=== PATIENT | male | born 1950 | race Caucasian/White ===

== ENCOUNTER 2024-08-23 08:31 | Inpatient (IN) | payer OTHER ==
[~2024-08-23] VITALS: Ht 188 cm; Wt 106.0 kg
[2024-08-23] VITALS (7 sets, daily range): BP systolic 118–129; BP diastolic 56–64; TEMP 97.9–99.8; O2SAT 91–96
[~2024-08-23 08:31] MED LIST: BACITAB PO; FISH1000 PO; LEVO150T7 PO; VITA100066 PO; VITMTA PO; XARE15TA PO; ZYLO300T6 PO
[2024-08-23] MEDS: MORPHINE 4 MG/ML 1ML VIAL IV ONE (09:06)
[2024-08-23] MEDS: ONDANSETRON 4MG 2ML VIAL IV ONE (09:06)
[2024-08-23 09:07] LABS: VENOUS HCO3 20.6 MMOL/L (23.0-27.0); VENOUS O2 SATURATION 98.8 % (60.0-80.0); VENOUS PARTIAL PRESSURE CO2 40.2 mmHg (38.0-50.0); VENOUS PH 7.328 UNITS (7.330-7.430); VENOUS STANDARD HCO3 20.4 MMOL/L; VENOUS TOTAL CO2 21.9 MMOL/L (24.0-28.0)
[2024-08-23 09:17] LABS: BASO % 0.4 % (0.0-1.0); EOS # 0.2 10^3/uL (0.0-0.5); EOS % 3.2 % (0.0-3.0); HEMATOCRIT 36.2 % (42.0-52.0); HEMOGLOBIN 11.8 g/dl (13.5-17.5); LYMPH # 1.2 10^3/uL (1.5-5.0); LYMPH % 15.9 % (24.0-44.0); MEAN CORPUSCULAR HEMOGLOBIN 28.6 pg (27.0-33.0); MEAN CORPUSCULAR HGB CONC 32.6 g/dl (32.0-36.5); MEAN CORPUSCULAR VOLUME 87.7 fl (80.0-96.0); MONO # 0.5 10^3/uL (0.0-0.8); MONO % 7.4 % (2.0-8.0); NEUTROPHILS # 5.3 10^3/uL (1.5-8.5); NEUTROPHILS % 72.1 % (36.0-66.0); PLATELET COUNT, AUTOMATED 197 10^3/uL (150-450); RED BLOOD COUNT 4.13 10^6/uL (4.30-6.10); WHITE BLOOD COUNT 7.3 10^3/uL (4.0-10.0)
[2024-08-23 09:28] LABS: PARTIAL THROMBOPLASTIN TIME 27.2 SECONDS (24.8-34.2); PROTHROMBIN TIME 13.5 SECONDS (12.5-14.5)
[2024-08-23] MEDS ORDERED: ISOVUE-370 76% 100ML VIAL As Ordered ONE (09:28)
[2024-08-23] MEDS: HYDROMORPHONE HCL 0.5 MG/ 0.5 ML SYRINGE IV PRN (10:35)
[2024-08-23 11:23] LABS: LIPASE 39 U/L (12-53)
[2024-08-23 11:25] LABS: AMYLASE 49 U/L (30-118); CK-MB VALUE MASS 44.4 NG/ML (<3.6)
[2024-08-23 11:26] LABS: ALBUMIN 3.4 G/DL (3.2-5.2); ALKALINE PHOSPHATASE 75 U/L (40-129); ALT/SGPT 22 U/L (7.0-40); AST/SGOT 69 U/L (<34); BILIRUBIN,DIRECT 0.2 MG/DL (<0.4); BILIRUBIN,TOTAL 0.4 MG/DL (0.3-1.2); BLOOD UREA NITROGEN 26 MG/DL (9-23); CALCIUM LEVEL 8.5 MG/DL (8.3-10.6); CARBON DIOXIDE LEVEL 26 MMOL/L (20-31); CHLORIDE LEVEL 108 MMOL/L (98-107); GLOMERULAR FILTRATION RATE > 60.0 (>42); GLUCOSE, FASTING 120 MG/DL (74-106); POTASSIUM SERUM 4.3 MMOL/L (3.5-5.1); SODIUM LEVEL 143 MMOL/L (136-145); TOTAL PROTEIN 6.7 G/DL (5.7-8.2)
[2024-08-23 11:41] LABS: CPK CREATINE PHOSPHOKINASE 1866 U/L (46-171); MB/CK RELATIVE INDEX 2.37 (< OR =4)
[2024-08-23 12:46] LABS: APPEARANCE, URINE CLEAR (CLEAR); BACTERIA, URINE AUTO NEGATIVE (NEGATIVE); BILIRUBIN, URINE AUTO NEGATIVE (NEGATIVE); BLOOD, URINE BLOOD 3+ (NEGATIVE); COLOR, URINE YELLOW (YELLOW); GLUCOSE, URINE (UA) AUTO NEGATIVE (NEGATIVE); KETONE, URINE AUTO NEGATIVE (NEGATIVE); LEUKOCYTE ESTERASE, URINE AUTO NEGATIVE (NEGATIVE); MUCUS, URINE SMALL (NEGATIVE); NITRITE, URINE AUTO NEGATIVE (NEGATIVE); PROTEIN, URINE AUTO NEGATIVE (NEGATIVE); RBC, URINE AUTO 18 /HPF (0-3); SPECIFIC GRAVITY URINE AUTO 1.048 (1.002-1.035); SQUAMOUS EPITHELIAL CELL UR AU 0 /HPF (0-6); UROBILINOGEN, URINE AUTO 0.2 mg/dL (0.0-2.0); WBC, URINE AUTO 1 /HPF (0-3)
[2024-08-23 13:04] LABS: PHENCYCLIDINE URINE NEGATIVE (NEGATIVE)
[2024-08-23 13:05] LABS: AMPHETAMINES LEVEL URINE NEGATIVE (NEGATIVE); BARBITURATES URINE NEGATIVE (NEGATIVE); BENZODIAZEPINES URINE NEGATIVE (NEGATIVE); CANNABINOIDS URINE NEGATIVE (NEGATIVE); COCAINE METABOLITE URINE NEGATIVE (NEGATIVE); METHADONE URINE NEGATIVE (NEGATIVE)
[2024-08-23 13:19] LABS: OPIATES URINE POSITIVE (NEGATIVE)
[2024-08-23] MEDS ORDERED: HYDROMORPHONE HCL 0.5 MG/ 0.5 ML SYRINGE IV PRN (13:45)
[2024-08-23] MEDS ORDERED: IPRATROPIUM 0.5MG/ALBUTEROL 2.5MG INH SOL UD 3ML (DUONEB) NEB PRN (13:45)
[2024-08-23] MEDS ORDERED: ACETAMINOPHEN 325 MG TAB PO PRN (13:45)
[2024-08-23] MEDS ORDERED: ONDANSETRON 4MG 2ML VIAL IV PRN (13:45)
[2024-08-23] MEDS ORDERED: PROMETHAZINE 25MG/ML 1ML VIAL IV PRN (13:45)
[2024-08-23] MEDS ORDERED: ALLO300T2 PO (14:03)
[2024-08-23] MEDS ORDERED: MULT-40 PO (14:03)
[2024-08-23] MEDS ORDERED: VITA200030 PO (14:03)
[2024-08-23] MEDS ORDERED: OMEP40CA4 PO (14:03)
[2024-08-23] MEDS ORDERED: FLUT15.820 (14:03)
[2024-08-23] MEDS ORDERED: XARE10TA PO (14:03)
[2024-08-23] MEDS ORDERED: FLUT1BLS2 IH (14:03)
[2024-08-23] MEDS ORDERED: HOME MED LIST COMPLETE! XX SCH (14:05)
[2024-08-23] MEDS: NS (Normal Saline) 0.9% 1,000 ML IV SCH (14:22)
[2024-08-23] MEDS: PANTOPRAZOLE 40MG VIAL IV SCH (14:22)
[2024-08-23 14:26] LABS: HEMATOCRIT 36.7 % (42.0-52.0); HEMOGLOBIN 11.8 g/dl (13.5-17.5); MEAN CORPUSCULAR HEMOGLOBIN 28.4 pg (27.0-33.0); MEAN CORPUSCULAR HGB CONC 32.2 g/dl (32.0-36.5); MEAN CORPUSCULAR VOLUME 88.4 fl (80.0-96.0); PLATELET COUNT, AUTOMATED 178 10^3/uL (150-450); RED BLOOD COUNT 4.15 10^6/uL (4.30-6.10); WHITE BLOOD COUNT 8.1 10^3/uL (4.0-10.0)
[2024-08-23] MEDS: IPRATROPIUM 0.5MG/ALBUTEROL 2.5MG INH SOL UD 3ML (DUONEB) NEB SCH (16:56)
[2024-08-23 17:52] LABS: CK-MB VALUE MASS 42.6 NG/ML (<3.6)
[2024-08-23 18:29] LABS: MB/CK RELATIVE INDEX 1.31 (< OR =4)
[2024-08-23] MEDS: DOCUSATE SODIUM 100MG CAPSULE PO SCH (20:08)
[2024-08-23 23:57] LABS: CK-MB VALUE MASS 27.2 NG/ML (<3.6)
[2024-08-24] VITALS (11 sets, daily range): BP systolic 105–128; BP diastolic 53–61; TEMP 97.4–99.2; O2SAT 93–99
[2024-08-24 00:17] LABS: MB/CK RELATIVE INDEX 0.83 (< OR =4)
[2024-08-24 04:53] LABS: HEMATOCRIT 31.9 % (42.0-52.0); HEMOGLOBIN 10.3 g/dl (13.5-17.5); MEAN CORPUSCULAR HEMOGLOBIN 28.7 pg (27.0-33.0); MEAN CORPUSCULAR HGB CONC 32.3 g/dl (32.0-36.5); MEAN CORPUSCULAR VOLUME 88.9 fl (80.0-96.0); PLATELET COUNT, AUTOMATED 159 10^3/uL (150-450); RED BLOOD COUNT 3.59 10^6/uL (4.30-6.10); WHITE BLOOD COUNT 5.5 10^3/uL (4.0-10.0)
[2024-08-24] MEDS: LEVOTHYROXINE 150MCG TABLET (0.15MG) PO SCH (05:20)
[2024-08-24] MEDS: KETOROLAC 30 MG/ML 1ML VIAL IV PRN (05:20)
[2024-08-24 05:38] LABS: BLOOD UREA NITROGEN 22 MG/DL (9-23); CALCIUM LEVEL 8.8 MG/DL (8.3-10.6); CARBON DIOXIDE LEVEL 25 MMOL/L (20-31); CHLORIDE LEVEL 108 MMOL/L (98-107); CHOLESTEROL LEVEL 87 MG/DL (<200); CHOLESTEROL RISK RATIO 2.35 (<5); CK-MB VALUE MASS 15.9 NG/ML (<3.6); CREATININE FOR GFR 1.01 MG/DL (0.70-1.30); GLOMERULAR FILTRATION RATE > 60.0 (>42); GLUCOSE, FASTING 133 MG/DL (74-106); LDL CHOLESTEROL 27.4 MG/DL (<100); POTASSIUM SERUM 4.2 MMOL/L (3.5-5.1); SODIUM LEVEL 139 MMOL/L (136-145); TRIGLYCERIDES LEVEL 113 MG/DL (<150)
[2024-08-24 05:40] LABS: THYROID STIMULATING HORMONE 0.477 uIU/ML (0.55-4.78)
[2024-08-24 05:50] LABS: CPK CREATINE PHOSPHOKINASE 2843 U/L (46-171); MB/CK RELATIVE INDEX 0.55 (< OR =4)
[2024-08-24 08:56] LABS: FREE T4 1.01 NG/DL (0.89-1.76)
[2024-08-24] MEDS: allopurinoL 300 MG TAB PO SCH (09:32)
[2024-08-24] MEDS: HYDROMORPHONE HCL 0.5 MG/ 0.5 ML SYRINGE IV PRN (09:38)
[2024-08-24 12:36] LABS: CK-MB VALUE MASS 11.6 NG/ML (<3.6)
[2024-08-24 12:56] LABS: MB/CK RELATIVE INDEX 0.41 (< OR =4)
[2024-08-25] VITALS (12 sets, daily range): BP systolic 119–140; BP diastolic 56–69; TEMP 97.7–98.3; O2SAT 86–96
[2024-08-25 06:35] LABS: HEMATOCRIT 31.4 % (42.0-52.0); HEMOGLOBIN 9.8 g/dl (13.5-17.5); MEAN CORPUSCULAR HEMOGLOBIN 28.2 pg (27.0-33.0); MEAN CORPUSCULAR HGB CONC 31.2 g/dl (32.0-36.5); MEAN CORPUSCULAR VOLUME 90.5 fl (80.0-96.0); PLATELET COUNT, AUTOMATED 143 10^3/uL (150-450); RED BLOOD COUNT 3.47 10^6/uL (4.30-6.10); WHITE BLOOD COUNT 5.4 10^3/uL (4.0-10.0)
[2024-08-25] MEDS: LEVOTHYROXINE 137MCG TABLET (0.137MG) PO SCH (06:36)
[2024-08-25 07:07] LABS: BLOOD UREA NITROGEN 18 MG/DL (9-23); CALCIUM LEVEL 8.1 MG/DL (8.3-10.6); CARBON DIOXIDE LEVEL 24 MMOL/L (20-31); CHLORIDE LEVEL 109 MMOL/L (98-107); CREATININE FOR GFR 0.98 MG/DL (0.70-1.30); GLOMERULAR FILTRATION RATE > 60.0 (>42); GLUCOSE, FASTING 120 MG/DL (74-106); POTASSIUM SERUM 4.3 MMOL/L (3.5-5.1); SODIUM LEVEL 143 MMOL/L (136-145)
[2024-08-25] MEDS: PERCOCET 5MG/325MG TAB PO ONE (08:38)
[2024-08-25] MEDS: RIVAROXABAN 10MG TAB (XARELTO) PO SCH (19:54)
[2024-08-26 03:38] VITALS: BP 124/69; TEMP 98.6; O2SAT 97
[2024-08-26 06:35] LABS: HEMATOCRIT 29.1 % (42.0-52.0); HEMOGLOBIN 9.3 g/dl (13.5-17.5); MEAN CORPUSCULAR HEMOGLOBIN 28.6 pg (27.0-33.0); MEAN CORPUSCULAR VOLUME 89.5 fl (80.0-96.0); PLATELET COUNT, AUTOMATED 146 10^3/uL (150-450); RED BLOOD COUNT 3.25 10^6/uL (4.30-6.10); WHITE BLOOD COUNT 5.2 10^3/uL (4.0-10.0)
[2024-08-26 06:55] LABS: BLOOD UREA NITROGEN 13 MG/DL (9-23); CALCIUM LEVEL 8.3 MG/DL (8.3-10.6); CARBON DIOXIDE LEVEL 24 MMOL/L (20-31); CHLORIDE LEVEL 109 MMOL/L (98-107); CREATININE FOR GFR 0.94 MG/DL (0.70-1.30); GLOMERULAR FILTRATION RATE > 60.0 (>42); GLUCOSE, FASTING 113 MG/DL (74-106); POTASSIUM SERUM 4.2 MMOL/L (3.5-5.1); SODIUM LEVEL 143 MMOL/L (136-145)
[2024-08-26] MEDS ORDERED: NALOXONE INJ 0.4MG/1ML VIAL IV PRN (09:50)
[2024-08-26 10:06] LABS: CK-MB VALUE MASS 1.5 NG/ML (<3.6)
[2024-08-26 10:10] LABS: CPK CREATINE PHOSPHOKINASE 925 U/L (46-171); MB/CK RELATIVE INDEX 0.16 (< OR =4)
[2024-08-26] MEDS: PERCOCET 5MG/325MG TAB PO ONE (11:04)
[2024-08-26] MEDS: ACETAMINOPHEN 500 MG TAB PO SCH (11:13)
[2024-08-26 12:00] VITALS: BP 126/69; TEMP 98.6; O2SAT 94
[2024-08-26 20:39] VITALS: BP 129/69; TEMP 98.1; O2SAT 92
[2024-08-27 04:33] VITALS: BP 136/72; TEMP 98.1; O2SAT 93
[2024-08-27 06:41] LABS: HEMATOCRIT 29.7 % (42.0-52.0); HEMOGLOBIN 9.5 g/dl (13.5-17.5); MEAN CORPUSCULAR HEMOGLOBIN 28.3 pg (27.0-33.0); MEAN CORPUSCULAR VOLUME 88.4 fl (80.0-96.0); PLATELET COUNT, AUTOMATED 179 10^3/uL (150-450); RED BLOOD COUNT 3.36 10^6/uL (4.30-6.10); WHITE BLOOD COUNT 3.8 10^3/uL (4.0-10.0)
[2024-08-27 07:03] LABS: BLOOD UREA NITROGEN 14 MG/DL (9-23); CALCIUM LEVEL 8.6 MG/DL (8.3-10.6); CARBON DIOXIDE LEVEL 26 MMOL/L (20-31); CHLORIDE LEVEL 109 MMOL/L (98-107); CREATININE FOR GFR 0.97 MG/DL (0.70-1.30); GLOMERULAR FILTRATION RATE > 60.0 (>42); GLUCOSE, FASTING 117 MG/DL (74-106); POTASSIUM SERUM 4.2 MMOL/L (3.5-5.1); SODIUM LEVEL 143 MMOL/L (136-145)
[2024-08-27 10:26] VITALS: O2SAT 92
[2024-08-27 12:00] VITALS: BP 134/72; TEMP 97.9; O2SAT 94
[2024-08-27] MEDS: FUROSEMIDE 40MG/4ML VIAL IV ONE (12:16)
[2024-08-27 14:33] VITALS: O2SAT 93
[2024-08-27 20:16] VITALS: BP 131/69; TEMP 97.9; O2SAT 92
[2024-08-28 04:03] VITALS: BP 142/72; TEMP 97.9; O2SAT 94
[2024-08-28 06:11] LABS: HEMATOCRIT 30.7 % (42.0-52.0); HEMOGLOBIN 10.1 g/dl (13.5-17.5); MEAN CORPUSCULAR HEMOGLOBIN 28.8 pg (27.0-33.0); MEAN CORPUSCULAR HGB CONC 32.9 g/dl (32.0-36.5); MEAN CORPUSCULAR VOLUME 87.5 fl (80.0-96.0); PLATELET COUNT, AUTOMATED 201 10^3/uL (150-450); RED BLOOD COUNT 3.51 10^6/uL (4.30-6.10); WHITE BLOOD COUNT 4.1 10^3/uL (4.0-10.0)
[2024-08-28 06:44] LABS: BLOOD UREA NITROGEN 17 MG/DL (9-23); CALCIUM LEVEL 8.9 MG/DL (8.3-10.6); CARBON DIOXIDE LEVEL 30 MMOL/L (20-31); CHLORIDE LEVEL 103 MMOL/L (98-107); CREATININE FOR GFR 1.06 MG/DL (0.70-1.30); GLOMERULAR FILTRATION RATE > 60.0 (>42); GLUCOSE, FASTING 122 MG/DL (74-106); SODIUM LEVEL 140 MMOL/L (136-145)
[2024-08-28] MEDS: FUROSEMIDE 40MG/4ML VIAL IV ONE ×2 (08:32→15:53)
[2024-08-28 12:00] VITALS: BP 124/75; TEMP 97.9; O2SAT 95
[2024-08-28] MEDS: MIDODRINE 5 MG TAB PO ONE (14:42)
[2024-08-28 14:45] VITALS: BP 126/68; O2SAT 94
[2024-08-28 15:54] VITALS: BP 124/68; O2SAT 89
[2024-08-28 20:30] VITALS: BP 124/68; TEMP 98.1; O2SAT 91
[2024-08-29 04:00] VITALS: BP 126/69; TEMP 98.2; O2SAT 90
[2024-08-29 05:24] LABS: HEMATOCRIT 33.1 % (42.0-52.0); HEMOGLOBIN 10.7 g/dl (13.5-17.5); MEAN CORPUSCULAR HGB CONC 32.3 g/dl (32.0-36.5); MEAN CORPUSCULAR VOLUME 86.6 fl (80.0-96.0); PLATELET COUNT, AUTOMATED 220 10^3/uL (150-450); RED BLOOD COUNT 3.82 10^6/uL (4.30-6.10); WHITE BLOOD COUNT 4.9 10^3/uL (4.0-10.0)
[2024-08-29 05:48] LABS: BLOOD UREA NITROGEN 26 MG/DL (9-23); CALCIUM LEVEL 9.2 MG/DL (8.3-10.6); CARBON DIOXIDE LEVEL 29 MMOL/L (20-31); CHLORIDE LEVEL 103 MMOL/L (98-107); CREATININE FOR GFR 1.16 MG/DL (0.70-1.30); GLOMERULAR FILTRATION RATE > 60.0 (>42); GLUCOSE, FASTING 119 MG/DL (74-106); POTASSIUM SERUM 4.1 MMOL/L (3.5-5.1); SODIUM LEVEL 141 MMOL/L (136-145)
[2024-08-29] MEDS ORDERED: OXYC1TAB23 PO (11:42)
== END 2024-08-29 14:41 | disposition home or self-care (01) | DRG 930 ==
LOC: M ED 08:31 → EDBD 08:31 → M ED INP 13:44 → M ICU 15:58 → M PCU 08-24 10:03 → M MSPAV 08-25 20:38
PROVIDERS: ADMIT General Practice; ATTEND Surgery
PROC: B246ZZZ Ultrasonography of Right and Left Heart (ICD-10-PCS; principal; 2024-08-23)
DX: S22.22XA Fracture of body of sternum, initial encounter for closed fracture (principal); J96.01 Acute respiratory failure with hypoxia; K66.1 Hemoperitoneum; S22.088A Other fracture of T11-T12 vertebra, initial encounter for closed fracture; M62.82 Rhabdomyolysis; E87.70 Fluid overload, unspecified; S37.011A Minor contusion of right kidney, initial encounter; S20.213A Contusion of bilateral front wall of thorax, initial encounter; V49.40XA Driver injured in collision with unspecified motor vehicles in traffic accident, initial encounter; M10.9 Gout, unspecified; E03.9 Hypothyroidism, unspecified; E78.5 Hyperlipidemia, unspecified; M47.814 Spondylosis without myelopathy or radiculopathy, thoracic region; J98.11 Atelectasis; R91.1 Solitary pulmonary nodule; Z85.46 Personal history of malignant neoplasm of prostate; Z86.711 Personal history of pulmonary embolism; Z86.718 Personal history of other venous thrombosis and embolism; Z79.890 Hormone replacement therapy; Z79.01 Long term (current) use of anticoagulants; Z79.899 Other long term (current) drug therapy; R26.89 Other abnormalities of gait and mobility

== ENCOUNTER 2025-05-07 10:31 | Emergency (ER) | payer OTHER, MEDICAID ==
[~2025-05-07] VITALS: Ht 188 cm; Wt 112.4 kg
[~2025-05-07 10:31] MED LIST changes: +ALLO300T2 PO; +FLUT15.820; +FLUT1BLS2 IH; +MULT-40 PO; +OMEP40CA4 PO; +OXYC1TAB23 PO; +VITA200030 PO; +XARE10TA PO
[2025-05-07 12:15] LABS: BASO # 0.1 10^3/uL (0.0-0.2); BASO % 1.1 % (0.0-1.0); EOS # 0.4 10^3/uL (0.0-0.5); EOS % 7.1 % (0.0-3.0); LYMPH # 1.7 10^3/uL (1.5-5.0); LYMPH % 31.3 % (24.0-44.0); MONO # 0.7 10^3/uL (0.0-0.8); MONO % 11.8 % (2.0-8.0); NEUTROPHILS # 2.7 10^3/uL (1.5-8.5); NEUTROPHILS % 48.5 % (36.0-66.0); PLATELET COUNT, AUTOMATED 203 10^3/uL (150-450)
[2025-05-07 12:56] LABS: CALCIUM LEVEL 8.9 MG/DL (8.3-10.6); CARBON DIOXIDE LEVEL 23.0 MMOL/L (20-31); CHLORIDE LEVEL 107.0 MMOL/L (98-107); CK-MB VALUE MASS 3.9 NG/ML (<3.6); CPK CREATINE PHOSPHOKINASE 118.0 U/L (46-171); CREATININE FOR GFR 1.04 MG/DL (0.70-1.30); GLOMERULAR FILTRATION RATE 74.9 (>42); MB/CK RELATIVE INDEX 3.3 (< OR =4); POTASSIUM SERUM 4.0 MMOL/L (3.5-5.1); SODIUM LEVEL 142.0 MMOL/L (136-145)
[2025-05-07] MEDS: NS 500 ML IV ONE (13:11)
[2025-05-07] MEDS ORDERED: ISOVUE-370 76% 100 ML VIAL As Ordered ONE (13:23)
[2025-05-07] MEDS ORDERED: ALLO100T PO (13:45)
[2025-05-07] MEDS ORDERED: EZET10TA57 PO (13:45)
[2025-05-07] MEDS ORDERED: VITA100093 PO (13:45)
[2025-05-07] MEDS ORDERED: FERR32TA PO (13:45)
[2025-05-07] MEDS ORDERED: HOME MED LIST COMPLETE! XX SCH (13:50)
[2025-05-07 13:53] LABS: INR 1.13
[2025-05-07 14:22] LABS: CK-MB VALUE MASS 3.4 NG/ML (<3.6)
[2025-05-07 14:23] LABS: CPK CREATINE PHOSPHOKINASE 99.0 U/L (46-171); MB/CK RELATIVE INDEX 3.43 (< OR =4)
[2025-05-07 15:01] VITALS: TEMP 97.4
[2025-05-07 15:45] VITALS: BP 136/65; O2SAT 99
== END 2025-05-07 16:09 | disposition home or self-care (01) ==
LOC: M ED 10:31
DX: R07.89 Other chest pain (principal); Z85.46 Personal history of malignant neoplasm of prostate; Z86.711 Personal history of pulmonary embolism; Z79.01 Long term (current) use of anticoagulants; Z92.3 Personal history of irradiation; Z79.899 Other long term (current) drug therapy
CPT/HCPCS: 71046; 71275; 80048; 82550; 82553; 84484; 85025; 85610; 85730; 93005; 93041; 96360; 96361; 99285; Q9967